=== PATIENT | female | born 1995 | race Caucasian/White ===

== ENCOUNTER 2020-06-01 20:18 | Emergency (ER) | payer OTHER ==
[~2020-06-01] VITALS: Ht 149.9 cm; Wt 52.2 kg
[2020-06-01 20:25] VITALS: BP 132/76
[2020-06-01] MEDS ORDERED: PREDNISONE 20 M20 MG PO (20:45)
[2020-06-01] MEDS ORDERED: VISTARIL 25 MG25 M1 PO (20:45)
== END 2020-06-01 21:19 | disposition home or self-care (01) ==
LOC: ER 20:18
DX: R21 Rash and other nonspecific skin eruption (principal); F41.9 Anxiety disorder, unspecified